=== PATIENT | female | born 1985 | race Two or more races ===

== ENCOUNTER 2016-07-31 14:49 | Emergency (ER) | payer OTHER ==
[2016-07-31] MEDS ORDERED: OXYCODONE-ACETAMINOPHEN 5-325 MG TABLET PO ONE (15:38)
--- NOTE | 2016-07-31 15:39 | ER Document Report ---
ED Medical Screen (RME) - General Chief Complaint: Headache Stated Complaint: HEAD PAIN Notes: 31-year-old female complaining of headache for one week. She reports pain to her face years back of the head. She also reports trouble breathing and feeling faint. She had been taking Motrin for the headache but does not help. Here about one year ago when she was admitted for asthma exacerbation. Brief exam shows posterior cervical muscles and scalp muscles are all quite tender to palpate. I have greeted and performed a rapid initial assessment of this patient. A comprehensive ED assessment and evaluation of the patient, analysis of test results and completion of the medical decision making process will be conducted by additional ED providers. TRAVEL OUTSIDE OF THE [place] IN LAST 30 DAYS: No - Related Data Allergies/Adverse Reactions: No Known Allergies Allergy (Verified 07/31/16 14:53) Past Medical History Renal/ Medical History: Denies: Hx Peritoneal Dialysis Psychiatric Medical History: Reports: Hx Depression - Immunizations Hx Diphtheria, Pertussis, Tetanus Vaccination: Yes Physical Exam - Vital signs Vitals: Temp Pulse Resp BP Pulse Ox 98.6 F 94 16 128/87 H 98 07/31/16 14:54 07/31/16 14:54 07/31/16 14:54 07/31/16 14:54 07/31/16 14:54 Course - Vital Signs Vital signs: Temp Pulse Resp BP Pulse Ox 98.6 F 94 16 128/87 H 98 07/31/16 14:54 07/31/16 14:54 07/31/16 14:54 07/31/16 14:54 07/31/16 14:54
[2016-07-31 16:17] LABS: ABSOLUTE EOSINOPHILS # (AUTO) 0.1 10^3/uL (0.0-0.6); ABSOLUTE LYMPHOCYTES (AUTO) 2.2 10^3/uL (0.5-4.7); ABSOLUTE MONOCYTES (AUTO) 0.5 10^3/uL (0.1-1.4); ABSOLUTE NEUT (AUTO) 4.1 10^3/uL (1.7-8.2); BASOPHILS % (AUTO) 0.5 % (0-2); EOSINOPHILS % (AUTO) 0.9 % (0-6); HEMATOCRIT 34.9 % (36.0-47.0); HEMOGLOBIN 11.1 g/dL (12.0-15.5); HGB HCT DIFFERENCE -1.6; MEAN CORPUSCULAR HEMOGLOBIN 21.8 pg (27.0-33.4); MEAN CORPUSCULAR HGB CONC 31.9 g/dL (32.0-36.0); MEAN CORPUSCULAR VOLUME 68 fl (80-97); MONOCYTES % (AUTO) 7.3 % (3-13); RED BLOOD COUNT 5.11 10^6/uL (3.72-5.28); RED CELL DISTRIBUTION WIDTH 20.1 % (11.5-14.0); SEGMENTED NEUTROPHILS % (AUTO) 59.3 % (42-78); WHITE BLOOD COUNT 6.9 10^3/uL (4.0-10.5)
[2016-07-31 16:42] LABS: ALANINE AMINOTRANSFERASE 17 U/L (9-52); ALBUMIN 4.1 g/dL (3.5-5.0); ALKALINE PHOSPHATASE 67 U/L (38-126); ANION GAP 14 (5-19); ASPARTATE AMINO TRANSFERASE 16 U/L (14-36); BILIRUBIN,DIRECT 0.2 mg/dL (0.0-0.4); BILIRUBIN,TOTAL 0.4 mg/dL (0.2-1.3); BLOOD UREA NITROGEN 9 mg/dL (7-20); CALCIUM 9.2 mg/dL (8.4-10.2); CARBON DIOXIDE 25 mmol/L (22-30); CHLORIDE 105 mmol/L (98-107); CREATININE RESULT 0.78 mg/dL (0.52-1.25); GLUCOSE 90 mg/dL (75-110); POTASSIUM 4.1 mmol/L (3.6-5.0); SODIUM 143.8 mmol/L (137-145)
--- NOTE | 2016-07-31 19:19 | ER Document Report ---
HPI - HPI Pain Level: 3 - CARDIOVASCULAR Cardiovascular: DENIES: Chest pain - REPRODUCTIVE Reproductive: DENIES: : - DERM Skin Color: Normal Past Medical History - General Information source: Patient - Social History Smoking Status: Never Smoker Chew tobacco use (# tins/day): No Frequency of alcohol use: Rare Drug Abuse: None Family History: Reviewed & Not Pertinent Patient has suicidal ideation: No Patient has homicidal ideation: No Pulmonary Medical History: Reports: Hx Asthma Renal/ Medical History: Denies: Hx Peritoneal Dialysis Psychiatric Medical History: Reports: Hx Attention Deficit Hyperactivity Disorder, Hx Depression Surgical Hx: Negative - Immunizations Hx Diphtheria, Pertussis, Tetanus Vaccination: Yes Vertical Provider Document - CONSTITUTIONAL Agree With Documented VS: Yes Exam Limitations: No Limitations General Appearance: No Apparent Distress - INFECTION CONTROL TRAVEL OUTSIDE OF THE [place] IN LAST 30 DAYS: No - HEENT HEENT: Atraumatic, Normocephalic, PERRLA. negative: Conjuctival Injection, Pharyngeal Erythema, Tympanic Membrane Red - NECK Neck: Supple - tender bilateral trapezius muscles to occipital insertion - RESPIRATORY Respiratory: Breath Sounds Normal, No Respiratory Distress O2 Sat by Pulse Oximetry: 98 - CARDIOVASCULAR Cardiovascular: Regular Rate, Regular Rhythm - GI/ABDOMEN Gastrointestinal: Abdomen Soft, Abdomen Non-Tender - BACK Back: Normal Inspection - MUSCULOSKELETAL/EXTREMETIES Musculoskeletal/Extremeties: MAEW, FROM, Non-Tender - NEURO Level of Consciousness: Awake, Alert, Appropriate Motor/Sensory: No Motor Deficit, No Sensory Deficit, Other - gait stable - DERM Integumentary: Warm, Dry, No Rash Course - Re-evaluation Re-evalutation: 07/31/16 20:19 headache down to 2/5, ready to go home. labs negative. not (prior to torodol order) - Vital Signs Vital signs: Temp Pulse Resp BP Pulse Ox 98.6 F 94 16 128/87 H 98 07/31/16 14:54 07/31/16 14:54 07/31/16 14:54 07/31/16 14:54 07/31/16 14:54 - Laboratory Result Diagrams: 07/31/16 16:00 07/31/16 16:00 Laboratory results interpreted by me: 07/31/16 16:00 Hgb 11.1 L Hct 34.9 L MCV 68 L MCH 21.8 L MCHC 31.9 L RDW 20.1 H Discharge - Discharge Clinical Impression: neck muscle tenderness Headache Qualifiers: Headache type: unspecified Headache chronicity pattern: unspecified pattern Intractability: not intractable Qualified Code(s): R51 - Headache Condition: Good Instructions: Headache ([facility]), Use of Diphenhydramine, Reglan ([facility]), Toradol Injection ([facility]), Neurologist, Warm Packs ([facility]) Additional Instructions: Return to the emergency room this week and at its worse Rest Heat to neck muscles tylenol for the headache Please complete the patient satisfaction survey if you get one, and return it.. If you do not receive a survey, then you can go to the [facility] website, [email or web address] and place your comments about your very good care. Thank you very much. It was a pleasure being your medical provider today. Prescriptions: Ibuprofen [Motrin 800 mg Tablet] 800 mg PO Q8HP PRN #30 tablet PRN Reason: Forms: Return to Work Referrals: RIGO VILLATORO PA-C [Primary Care Provider] - Follow up as needed RADHA OREILLY MD [ACTIVE STAFF] - 08/03/16
[2016-07-31] MEDS ORDERED: NORMAL SALINE 1000 ML 1,000 ML IV ONE (19:20)
[2016-07-31] MEDS ORDERED: METOCLOPRAMIDE HCL INJ/PF 10 MG/2 ML SDV IV ONE (19:21)
[2016-07-31] MEDS ORDERED: DIPHENHYDRAMINE HCL 50 MG/ML VIAL IV ONE (19:21)
[2016-07-31] MEDS ORDERED: KETOROLAC TROMETHAMINE INJ/PF 30 MG/1 ML SDV IV ONE (19:39)
[2016-07-31 22:57] VITALS: BP 113/70
== END 2016-07-31 21:25 | disposition home or self-care (01) ==
LOC: ER 14:49
DX: R51 Headache (principal); M79.1 Myalgia; R06.00 Dyspnea, unspecified; J45.909 Unspecified asthma, uncomplicated
CPT/HCPCS: 99284; 96361; 96374; 96375; 36415; 84703; 85025; 80053; J1200; J1885; J2765; J7030

== ENCOUNTER 2016-08-02 02:54 | Emergency (ER) | payer OTHER ==
--- NOTE | 2016-08-02 03:46 | ER Document Report ---
ED Headache - General Chief Complaint: Headache >24 hrs old Stated Complaint: HEADACHE Notes: The patient is a 31-year-old female, past medical history headaches, presents with 1 day of bilateral frontal headache and maxillary sinus pain and congestion. She was seen in the emergency room yesterday for headache that was from her neck pain and said that this has improved. She is also complaining of feeling like her ears are full. She denies blurry vision, numbness, tingling, neck pain, fever, nausea, vomiting, ataxia, chest pain or shortness of breath. TRAVEL OUTSIDE OF THE [place] IN LAST 30 DAYS: No - Related Data Allergies/Adverse Reactions: No Known Allergies Allergy (Verified 07/31/16 15:41) Past Medical History - General Information source: Patient - Social History Smoking Status: Unknown if Ever Smoked Family History: Reviewed & Not Pertinent Patient has suicidal ideation: No Patient has homicidal ideation: No Pulmonary Medical History: Reports: Hx Asthma Renal/ Medical History: Denies: Hx Peritoneal Dialysis Psychiatric Medical History: Reports: Hx Attention Deficit Hyperactivity Disorder, Hx Depression - Immunizations Hx Diphtheria, Pertussis, Tetanus Vaccination: Yes Review of Systems - Review of Systems Notes: REVIEW OF SYSTEMS: CONSTITUTIONAL: -fevers, -chills EENT: -eye pain, -difficulty swallowing, +sinus congestion CARDIOVASCULAR:-chest pain, -syncope. RESPIRATORY: -cough, -SOB GASTROINTESTINAL: -abdominal pain, - nausea, -vomiting, -diarrhea GENITOURINARY: -dysuria, -hematuria MUSCULOSKELETAL: -back pain, -neck pain SKIN: -rash or skin lesions. HEMATOLOGIC: -easy bruising or bleeding. LYMPHATIC: -swollen, enlarged glands. NEUROLOGICAL: -altered mental status or loss of consciousness, +headache, - neurologic symptoms PSYCHIATRIC: -anxiety, -depression. ALL OTHER SYSTEMS REVIEWED AND NEGATIVE. Physical Exam - Vital signs Vitals: Temp Pulse Resp BP Pulse Ox 98.3 F 78 18 135/85 H 98 08/02/16 03:20 08/02/16 03:20 08/02/16 03:20 08/02/16 03:20 08/02/16 03:20 - Notes Notes: PHYSICAL EXAMINATION: GENERAL: Well-appearing, well-nourished and in no acute distress. HEAD: Atraumatic, normocephalic. EYES: Pupils equal round and reactive to light, extraocular movements intact, sclera anicteric, conjunctiva are normal. ENT: B/L frontal and maxillary sinus tenderness, nares patent, oropharynx clear without exudates. Moist mucous membranes. NECK: Normal range of motion, supple without lymphadenopathy LUNGS: Breath sounds clear to auscultation bilaterally and equal. No wheezes rales or rhonchi. HEART: Regular rate and rhythm without murmurs ABDOMEN: Soft, nontender, normoactive bowel sounds. No guarding, no rebound. No masses appreciated. EXTREMITIES: Normal range of motion, no pitting or edema. No cyanosis. NEUROLOGICAL: Cranial nerves grossly intact. Normal speech, normal gait. Normal sensory, motor, and reflex exams. PSYCH: Normal mood, normal affect. SKIN: Warm, Dry, normal turgor, no rashes or lesions noted. Course - Re-evaluation Re-evalutation: Patient has signs and symptoms of sinus headache. Do not suspect SAH, ICH or meningitis at this time. Will treat her sinus congestion with Flonase, antihistamines and sinus rinses with follow-up at her primary care physician. - Vital Signs Vital signs: Temp Pulse Resp BP Pulse Ox 98.5 F 76 16 127/81 H 96 08/02/16 04:07 08/02/16 04:07 08/02/16 04:07 08/02/16 04:07 08/02/16 04:07 Discharge - Discharge Clinical Impression: Sinus headache Condition: Stable Disposition: HOME, SELF-CARE Additional Instructions: Begin the Flonase nasal spray and Zyrtec Motrin to help your headache. Follow- up with your primary care physician and neurologist for further evaluation and treatment. HEADACHE: The physician does not feel that the headache you are experiencing has a serious underlying cause. Most headaches are due to emotional stress, with resultant muscle tension (tension headache). Occasionally, headaches are secondary to changes in the blood vessels of the scalp (vascular headache and migraine headache). Sometimes, a headache is the first symptom of another developing illness, such as a viral infection. You have no evidence of stroke, bleeding, meningitis, or other serious cause of your headache. The treatment of headaches varies with the severity and cause of the pain. Not all headaches need pain shots. In fact, there is evidence that using narcotics for headaches may make them worse in the long run. The physician will determine the therapy that's in your best interest. If you develop a fever, if the headache is different from any you've previously experienced, or if the headache progressively worsens, then call your physician at once or go to the emergency room. ORAL NARCOTIC MEDICATION: You have been given a prescription for pain control. This medication is a narcotic. It's best taken with food, as nausea can result if taken on an empty stomach. Don't operate machinery or drive within six hours of taking this medication. Do not combine this medicine with alcohol, or with any medication which can cause sedation (such as cold tablets or sleeping pills) unless you get permission from the physician. Narcotics tend to cause constipation. If possible, drink plenty of fluids and eat a diet high in fiber and fruits. Please be aware that prescription narcotics also have the potential for abuse. People become addicted to these medications because of the general sense of wellbeing that they induce. This feeling along with a significant reduction in tension, anxiety, and aggression provides a stimulating seductive quality to these drugs. Once your pain is under control, we encourage you to discard your unused narcotics. FOLLOW-UP CARE: If you have been referred to a physician for follow-up care, call the physician s office for an appointment as you were instructed or within the next two days. If you experience worsening or a significant change in your symptoms, notify the physician immediately or return to the Emergency Department at any time for re-evaluation. Sinusitis You have sinusitis, an infection of the sinus cavities of the face. The sinuses are air-filled chambers which open into the inside of the nose. Bacteria and pus fill a sinus, causing pain, drainage, and fever. Often, expectorants (to thin the sinus mucous) or decongestants (to reduce swelling) are prescribed as well. Healing requires seven to 10 days. Avoid chemical fumes, pollens, dusts, and smoke (especially cigarette smoke ). Keep the air humidified in your bedroom and work area and take plenty of liquids by mouth. This condition can be serious if the infection spreads. If your symptoms worsen, or if you develop severe headache, high fever, stiff neck, or a rash, you must call the doctor or return for re-evaluation. Prescriptions: Fluticasone Propionate [Flonase Nasal Terrell 50 Mcg/Terrell 16 gm] 2 sprays NASL Q12 #1 inhaler Referrals: RIGO VILLATORO PA-C [Primary Care Provider] - Follow up as needed
[2016-08-02] MEDS ORDERED: BUTALB/ACETAMINOPHEN/CAFFEINE 1 TAB EACH PO ONE (03:57)
[2016-08-02 04:08] VITALS: BP 127/81
== END 2016-08-02 04:41 | disposition home or self-care (01) ==
LOC: ER 02:54
DX: R51 Headache (principal); R09.81 Nasal congestion; M54.2 Cervicalgia; H92.09 Otalgia, unspecified ear
CPT/HCPCS: 99283; J3490

== ENCOUNTER 2018-07-06 16:35 | Emergency (ER) | payer SELFPAY ==
--- NOTE | 2018-07-06 18:17 | ER Document Report ---
ED Medical Screen (RME) - General Chief Complaint: Abdominal Cramping Stated Complaint: SHOULDER/BCK PAIN, ABDOMINAL CRAMPING Time Seen by Provider: 07/06/18 18:02 Primary Care Provider: RIGO VILLATORO PA-C [Primary Care Provider] - Follow up as needed Notes: Patient is a 33-year-old female with PCO S that presents to the emergency department for chief complaint of right shoulder pain, and right pelvic pain. Patient is also been complaining of nausea for about a month now, and on and off right pelvic pain that seemingly worse, some pain going into the leg, she is also been having right shoulder pain is worse with range of motion and is rather tender.. ROS: Other than noted above, the 12 point review of systems was reviewed with the patient and were negative, all pertinent findings are included in the HPI. PHYSICAL EXAMINATION: Vital signs reviewed. GENERAL: Well-appearing, well-nourished and in no acute distress. HEAD: Atraumatic, normocephalic. EYES: Pupils equal round extraocular movements intact, conjunctiva are normal. ENT: Nares patent NECK: Normal range of motion CV: Heart regular rate and rhythm LUNGS: No respiratory distress Musculoskeletal: Normal range of motion, however there is pain with range of motion of the right shoulder, tenderness with palpation, positive Adam maneuver NEUROLOGICAL: Normal speech PSYCH: Normal mood, normal affect. MDM: Patient seen and examined for rapid initial assessment. Vital signs reviewed. A comprehensive ED assessment and evaluation of the patient, analysis of test results and completion of the medical decision making process will be conducted by additional ED providers. *Note is created using voice recognition software and may contain spelling, syntax or grammatical errors. TRAVEL OUTSIDE OF THE [place] IN LAST 30 DAYS: No - Related Data Allergies/Adverse Reactions: No Known Allergies Allergy (Verified 07/06/18 18:04) Past Medical History - Social History Chew tobacco use (# tins/day): No Frequency of alcohol use: Occasional Drug Abuse: None Pulmonary Medical History: Reports: Hx Asthma Renal/ Medical History: Denies: Hx Peritoneal Dialysis Psychiatric Medical History: Reports: Hx Attention Deficit Hyperactivity Disorder, Hx Depression - Immunizations Hx Diphtheria, Pertussis, Tetanus Vaccination: Yes Physical Exam - Vital signs Vitals: Temp Pulse Resp BP Pulse Ox 99.1 F 98 18 144/81 H 99 07/06/18 16:49 07/06/18 16:49 07/06/18 16:49 07/06/18 16:49 07/06/18 16:49 Course - Vital Signs Vital signs: Temp Pulse Resp BP Pulse Ox 99.1 F 98 18 144/81 H 99 07/06/18 16:49 07/06/18 16:49 07/06/18 16:49 07/06/18 16:49 07/06/18 16:49 Doctor's Discharge - Discharge Referrals: RIGO VILLATORO PA-C [Primary Care Provider] - Follow up as needed
[2018-07-06] MEDS ORDERED: METOCLOPRAMIDE HCL 10 MG TABLET PO ONE (18:18)
[2018-07-06 19:16] LABS: APPEARANCE,URINE CLOUDY; BILIRUBIN,URINE NEGATIVE (NEGATIVE); COLOR,URINE YELLOW; GLUCOSE, URINE NEGATIVE (NEGATIVE); KETONES,URINE NEGATIVE (NEGATIVE); LEUKOCYTE ESTERASE,URINE TRACE (NEGATIVE); NITRITE,URINE NEGATIVE (NEGATIVE); PROTEIN,URINE 30 mg/dL (NEGATIVE); URINE SPECIFIC GRAVITY 1.023
--- NOTE | 2018-07-06 19:56 | ER Document Report ---
ED General - General Chief Complaint: Abdominal Cramping Stated Complaint: SHOULDER/BCK PAIN, ABDOMINAL CRAMPING Time Seen by Provider: 07/06/18 18:02 Primary Care Provider: RIGO VILLATORO PA-C [NO LOCAL MD] - Follow up as needed TRAVEL OUTSIDE OF THE [place] IN LAST 30 DAYS: No - HPI Notes: Patient is a 33-year-old female with no significant past medical history who presents emergency department for 2 separate complaints. The first is right shoulder pain over the last several days. 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 Patient states that overhead activities make her pain worse. She has not had any injury. The pain does not radiate. Denies IV drug abuse. Patient second complaint is nausea usually in the mornings for the last month and a half with intermittent right lower pelvic cramping and spotting. Patient states that she has taken home test that were negative. Patient has no concern of STD or STI and has not had any other vaginal discharge or odor. Patient states that she does not want any STD testing. She is eating and drinking without any difficulties. She is urinating normally and having daily bowel movements. No melena or hematochezia. Patient currently does not have any pelvic pain or cramping. Denies any headache, fever, neck pain, URI, sore throat, chest pain, palpitation s, syncope, cough, shortness of breath, wheeze, dyspnea, vomiting/diarrhea, urinary retention, dysuria, hematuria, loss of control of bowel or bladder, numbness/tingling, saddle anesthesia, muscle paralysis/weakness, or rash. - Related Data Allergies/Adverse Reactions: No Known Allergies Allergy (Verified 07/06/18 18:04) Past Medical History - Social History Smoking Status: Never Smoker Chew tobacco use (# tins/day): No Frequency of alcohol use: Occasional Drug Abuse: None Family History: Reviewed & Not Pertinent Patient has suicidal ideation: No Patient has homicidal ideation: No Pulmonary Medical History: Reports: Hx Asthma Renal/ Medical History: Denies: Hx Peritoneal Dialysis Psychiatric Medical History: Reports: Hx Attention Deficit Hyperactivity Disorder, Hx Depression - Immunizations Hx Diphtheria, Pertussis, Tetanus Vaccination: Yes Review of Systems - Review of Systems -: Yes All other systems reviewed and negative Physical Exam - Vital signs Vitals: Temp Pulse Resp BP Pulse Ox 99.1 F 98 18 144/81 H 99 07/06/18 16:49 07/06/18 16:49 07/06/18 16:49 07/06/18 16:49 07/06/18 16:49 - Notes Notes: PHYSICAL EXAMINATION: GENERAL: Well-appearing, well-nourished and in no acute distress. NECK: Normal range of motion, supple without lymphadenopathy. FROM. Strength 5+/5. Spurling neg. No tenderness. LUNGS: Breath sounds clear to auscultation bilaterally and equal. No wheezes rales or rhonchi. HEART: Regular rate and rhythm without murmurs, rubs, gallops. ABDOMEN: Soft, nontender, nondistended abdomen. No guarding, no rebound. Normal bowel sounds present. No CVA tenderness bilaterally. : pt declined. Musculoskeletal: Rt shoulder: FROM to passive/active. Strength 5+/5. + impingement test. Neg speed test. No crepitus. No erythema or warmth. No deformity or ecchymosis. RC intact 5+/5 strength. + mild tenderness to the anterior shoulder. Extremities: No cyanosis, clubbing, or edema b/l. Peripheral pulses 2+. Capillary refill less than 3 seconds. NEUROLOGICAL: Normal speech, normal gait. Normal sensory, motor exams PSYCH: Normal mood, normal affect. SKIN: Warm, Dry, normal turgor, no rashes or lesions noted. Course - Re-evaluation Re-evalutation: 07/06/18 22:21 Patient is an afebrile, well-hydrated, 33-year-old female who presents to the ED with rt shoulder pain, suspect impingement, and pelvic pain unspecified. Vitals are acceptable without any significant tachycardia, tachypnea, or hypoxia. PE is otherwise unremarkable. Urinalysis and hCG are unremarkable for any acute pathology. Pt did not want any swabs performed or pelvic exam. Patient is nontoxic-appearing is tolerating p.o. without any difficulties. Transvaginal ultrasound was also unremarkable for any acute pathology. No other labs or imaging warranted at this time based on H&P. Low suspicion/risk for acute appendicitis, bowel obstruction, acute cholecystitis, acute cholangitis, perforated diverticulitis, incarcerated hernia, pancreatitis, perforated ulcer, peritonitis, sepsis, septic joint, fracture, dislocation, pelvic inflammatory disease, ectopic , tubo-ovarian abscess, ovarian torsion, or other systemic emergent condition at this time. Patient is aware that her condition can change from initial presentation and she needs to monitor symptoms closely and seek medical attention if any acute changes. I will send her home with prescription for naproxen. Conservative measures otherwise for symptoms. Recheck with your PCM/OBGYN in 3-5 days. Return to the ED with any worsening/concerning symptoms otherwise as reviewed in discharge. Patient is in agreement. - Vital Signs Vital signs: Temp Pulse Resp BP Pulse Ox 99.1 F 98 18 144/81 H 99 07/06/18 16:49 07/06/18 16:49 07/06/18 16:49 07/06/18 16:49 07/06/18 16:49 - Laboratory Laboratory results interpreted by me: 07/06/18 18:41 Urine Protein 30 H Urine Blood MODERATE H Urine Urobilinogen 4.0 H Ur Leukocyte Esterase TRACE H Discharge - Discharge Clinical Impression: Pelvic pain Right shoulder pain Qualifiers: Chronicity: acute Qualified Code(s): M25.511 - Pain in right shoulder Condition: Stable Disposition: HOME, SELF-CARE Instructions: Pelvic Pain ([facility]) Additional Instructions: Rest, Ice, Compression, Elevation Use sling as directed Tylenol/ibuprofen as needed Light stretches daily Strength exercises as able Moist heat and massage may help F/u with your PCP/OBGYN in 3-5 days for a recheck Consider consult(s) with Orthopedics/physical therapy for ongoing/worsening symptoms Return to the ED with any worsening symptoms and/or development of fever, headache, chest pain, palpitations, syncope, shortness of breath, trouble breathing, abdominal pain, n/v/d, muscle weakness/paralysis, numbness/tingling, swelling, redness, or other worsening symptoms that are concerning to you. Prescriptions: Naproxen 500 mg PO BID #10 tablet Forms: Elevated Blood Pressure Referrals: RIGO VILLATORO PA-C [NO LOCAL MD] - Follow up as needed [facility] [Provider Group] - Follow up as needed [facility] [Provider Group] - Follow up as needed
--- NOTE | 2018-07-06 22:11 | RADIOLOGY REPORT (SQ) ---
EXAM DESCRIPTION: US TRANSVAGINAL COMPLETED DATE/TME: 07/06/2018 18:17 CLINICAL HISTORY: 33 years, Female, right pelvic pain, hx pcos COMPARISON: None. TECHNIQUE: LIMITATIONS: None. FINDINGS: There are no fibroids. The endometrial stripe measures 11 mm. The ovaries are unremarkable, and contain multiple small follicles bilaterally. Blood flow was demonstrated in both ovaries with Doppler. No free fluid. IMPRESSION: No acute finding. copyright 2010 [employer]- All Rights Reserved
[2018-07-06 22:40] VITALS: BP 126/72
--- NOTE | 2018-07-07 09:11 | ER Document Report ---
Doctor's Note Notes: I personally and independently obtained patient history and examined the patient in conjunction with the APC and agree with the assessment, treatment plan and disposition of the patient as recorded by the APC, and have reviewed the APC's note. HISTORY OF PRESENT ILLNESS: Patient is a 33-year-old female that presents to the emergency department for chief complaint of right shoulder pain, and pelvic pain. 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 She does states she has been trying to get as well. ROS: Constitutional: Negative for fever. Cardiovascular: Negative for chest pain. Respiratory: Negative for shortness of breath. Gastrointestinal: Negative for vomiting positive for pelvic pain Musculoskeletal: Positive for right shoulder pain Skin: Negative for rash. Neurological: Negative for weakness or numbness. Other than noted above, the 12 point review of systems was reviewed with the patient and were negative, all pertinent findings are included in the HPI. PHYSICAL EXAMINATION: Vital signs reviewed, nursing noted reviewed. GENERAL: Well-appearing, well-nourished and in no acute distress. HEAD: Atraumatic, normocephalic. EYES: Eyes appear normal, conjunctiva are normal. ENT: nares patent, oropharynx clear without exudates. Moist mucous membranes. NECK: Normal range of motion, supple without lymphadenopathy LUNGS: Breath sounds clear to auscultation bilaterally and equal. No wheezes rales or rhonchi. HEART: Regular rate and rhythm without murmurs ABDOMEN: Soft, nontender, normoactive bowel sounds. No rebound, guarding, or rigidity. No masses appreciated. EXTREMITIES: Shoulder is tender to palpate on the right, there is pain with range of motion of the shoulder particularly with Adam maneuver, and empty can testing, the rest of the patient's extremity exam is grossly unremarkable and nontender, good range of motion, no pitting or edema. NEUROLOGICAL: No focal neurological deficits. Moves all extremities spontaneously Motor and sensory grossly intact on exam. PSYCH: Normal mood, normal affect. SKIN: Warm, Dry, normal turgor, no rashes or lesions noted on exposed skin MEDICAL DECISION MAKING: Patient's clinical examination was most consistent with right shoulder impingement syndrome, patient given a sling, she had ultrasound performed, that was negative, she overall appeared well, advised rest, ice and support with a sling for her shoulder, and follow-up with [facility]. Please review detail APC documentation. *Note is created using voice recognition software and may contain spelling, syntax or grammatical errors. Laboratory 07/06/18 18:41 Urine Color YELLOW Urine Appearance CLOUDY Urine pH 9.0 Ur Specific [place] 1.023 Urine Protein 30 H Urine Glucose (UA) NEGATIVE Urine Ketones NEGATIVE Urine Blood MODERATE H Urine Nitrite NEGATIVE Urine Bilirubin NEGATIVE Urine Urobilinogen 4.0 H Ur Leukocyte Esterase TRACE H Urine WBC (Auto) 7 Urine RBC (Auto) >182 Squamous Epi Cells Auto 5 Urine Mucus (Auto) MOD Urine Ascorbic Acid NEGATIVE Urine HCG, Qual NEGATIVE Transvaginal US 07/06/18 18:17 IMPRESSION: No acute finding. copyright 2010 [employer]- All Rights Reserved
== END 2018-07-06 22:40 | disposition home or self-care (01) ==
LOC: ER 16:35
DX: R10.2 Pelvic and perineal pain (principal); M25.511 Pain in right shoulder; R11.0 Nausea; J45.909 Unspecified asthma, uncomplicated
CPT/HCPCS: 76830; 81001; 81025; 93976; 99284